=== PATIENT | male | born 1965 | race Caucasian/White ===

== ENCOUNTER 2017-08-04 17:22 | Emergency (ER) | payer BC ==
[~2017-08-04] VITALS: Ht 162.6 cm; Wt 67.4 kg
[~2017-08-04 17:22] MED LIST: ASPIRIN325 MG PO; LISINOPRIL10 MG PO; ROSUVASTATIN CA20 MG PO; ULTRAM50 MG PO
[2017-08-04] MEDS ORDERED: FLEXERIL10 MG PO (18:45)
[2017-08-04] MEDS ORDERED: NAPROSYN500 MG PO (18:45)
[2017-08-04 18:59] VITALS: BP 168/94
== END 2017-08-04 19:06 | disposition home or self-care (01) ==
LOC: EME 17:22
DX: M62.830 Muscle spasm of back (principal)
CPT/HCPCS: 99281; 99284; J1100